=== PATIENT | female | born 1995 | race Caucasian/White ===

== ENCOUNTER 2017-03-24 13:14 | Emergency (ER) | payer BC, OTHER ==
[~2017-03-24] VITALS: Ht 177.8 cm; Wt 65.8 kg
[2017-03-24] MEDS ORDERED: KETOROLAC 30 MG/ML VIAL IVP STA (13:39)
[2017-03-24] MEDS ORDERED: NS IV 1000 ML 1,000 ML IV ONE (13:39)
[2017-03-24 13:45] LABS: BASOPHILS % (AUTO) 1 % (0-10); EOSINOPHILS # (AUTO) 0.2 10^3/uL (0.0-0.3); EOSINOPHILS % (AUTO) 2 % (0-10); HEMATOCRIT 38 % (35-52); HEMOGLOBIN 13.3 G/DL (11.5-16.0); LYMPHOCYTES % (AUTO) 26 % (12-44); MEAN CORPUSCULAR HEMOGLOBIN 30 PG (25-34); MEAN CORPUSCULAR HGB CONC 35 G/DL (32-36); MEAN CORPUSCULAR VOLUME 84 FL (80-99); MEAN PLATELET VOLUME 11.7 FL (7.4-10.4); MONOCYTES # (AUTO) 0.4 X 10^3 (0.0-1.0); MONOCYTES % (AUTO) 6 % (0-12); NEUTROPHILS # (AUTO) 5.1 X 10^3 (1.8-7.8); NEUTROPHILS % (AUTO) 67 % (42-75); PLATELET COUNT 225 10^3/uL (130-400); RED CELL DISTRIBUTION WIDTH 12.9 % (10.0-14.5); WHITE BLOOD COUNT 7.7 10^3/uL (4.3-11.0)
[2017-03-24 13:52] LABS: BILIRUBIN,URINE NEGATIVE (NEGATIVE); CLARITY,URINE CLEAR; COLOR,URINE YELLOW; GLUCOSE, URINE (UA) NEGATIVE (NEGATIVE); KETONES,URINE NEGATIVE (NEGATIVE); LEUKOCYTE ESTERASE ,URINE NEGATIVE (NEGATIVE); NITRITE,URINE NEGATIVE (NEGATIVE); PH,URINE 6 (5-9); PROTEIN,URINE NEGATIVE (NEGATIVE); UROBILINOGEN,URINE NORMAL (NORMAL)
[2017-03-24 13:59] LABS: ALANINE AMINOTRANSFERASE 14 U/L (0-55); ALBUMIN 4.2 GM/DL (3.2-4.5); ALKALINE PHOSPHATASE 58 U/L (40-136); BILIRUBIN,TOTAL 0.8 MG/DL (0.1-1.0); BUN/CREATININE RATIO 10; CALCIUM 9.4 MG/DL (8.5-10.1); CARBON DIOXIDE 18 MMOL/L (21-32); CHLORIDE 110 MMOL/L (98-107); CREATININE SERUM 0.79 MG/DL (0.60-1.30); GFR ESTIMATED > 60; GLUCOSE 96 MG/DL (70-105); POTASSIUM 3.6 MMOL/L (3.6-5.0); SODIUM 138 MMOL/L (135-145)
[2017-03-24 14:02] LABS: BACTERIA,URINE NEGATIVE /HPF
--- NOTE | 2017-03-24 14:02 | ED GU-Female ---
General Chief Complaint: -Female Stated Complaint: OVARIAN CYST BURST, STILL BLEEDING Nursing Triage Note: PT CO OF ABD PAIN LOWER ABD, ABNORMAL BLEEDING, STATES WENT TO [facility] AND THEY TOLD HER MAYBE OVARIAN CYST RUPTURE. PT STATES NOT SUPPOSE TO BE ON PERIOD AT THIS X Source: patient Exam Limitations: no limitations History of Present Illness Date Seen by Provider: Mar 24, 2017 Time Seen by Provider: 13:37 Initial Comments Here with lower abdominal pain and abnormal bleeding. She is on control and has not yet to the placebo pills. She started having abdominal bleeding for a couple days. Was seen at [facility] and had diagnosis of possible ovarian cyst rupture. Pain is worse today. Earlier this morning it was much worse but is 13 out of 10 currently. Pain seems to be suprapubic and low right side. Timing/Duration: getting worse, other (3-4 days) Severity/Quality: moderate, aching Location: suprapubic Radiation: RLQ Activities at Onset: none Sexual Friendship History: less than 2 months ago, single partner Associated Symptoms: abdominal pain, dysuria, No fever/chills, No lower back pain, No nausea/vomiting, No urinary frequency Allergies and Home Medications Allergies Coded Allergies: No Known Drug Allergies (Unverified , 03/24/17) Constitutional: see HPI EENTM: no symptoms reported Respiratory: no symptoms reported Cardiovascular: no symptoms reported Gastrointestinal: see HPI, abdominal pain, diarrhea, No nausea, No vomiting Genitourinary: denies dysuria, denies pain : No LMP: Feb 21, 2017 Musculoskeletal: no symptoms reported Skin: no symptoms reported All Other Systemes Reviewed Negative Unless Noted: Yes Past Hirhlga-Oeents-Nldmku Hx Patient Social History Alcohol Use: Denies Use Recreational Drug Use: No Smoking Status: Never a Smoker Recent Foreign Travel: No Contact w/Someone Who Travel: No Recent Infectious Disease Expo: No Recent Hopitalizations: No Ebola Symptoms: Denies Symptoms Listed Physical Abuse: No Sexual Abuse: No Surgeries History of Surgeries: No Respiratory History of Respiratory Disorde: No Cardiovascular History of Cardiac Disorders: No Neurological History of Neurological Disord: No Genitourinary History of Genitourinary Disor: No Gastrointestinal History of Gastrointestinal Di: No Psychosocial Suicide Risk Score: 0 Reviewed Nursing Assessment Reviewed/Agree w Nursing PMH: Yes Family Medical History Significant Family History: No Pertinent Family Hx Physical Exam Vital Signs Vital Signs - First Documented 03/24/17 13:30 Temp 98.1 Pulse 78 Resp 18 B/P (MAP) 142/82 Capillary Refill : General Appearance: WD/WN, no apparent distress HEENT: PERRL/EOMI, pharynx normal Neck: full range of motion, supple Cardiovascular: regular rate, rhythm, no murmur Respiratory: lungs clear, normal breath sounds Gastrointestinal: soft, tenderness (suprapubic and to a lesser extent the right lower quadrant.) Back: normal inspection, no CVA tenderness, no vertebral tenderness Extremities: non-tender, normal inspection Neurologic/Psychiatric: alert, oriented x 3 Skin: normal color, warm/dry Progress/Results/Core Measures Suspected Sepsis SIRS Temperature:98.1 Pulse: Respiratory Rate: Laboratory Tests 03/24/17 13:30: White Blood Count 7.7 Blood Pressure / Mean: Laboratory Tests 03/24/17 13:30: Creatinine 0.79, Platelet Count 225, Total Bilirubin 0.8 Results/Orders Lab Results Laboratory Tests Test 03/24/17 13:30 03/24/17 13:44 Range/Units White Blood Count 7.7 4.3-11.0 10^3/uL Red Blood Count 4.50 4.35-5.85 10^6/uL Hemoglobin 13.3 11.5-16.0 G/DL Hematocrit 38 35-52 % Mean Corpuscular Volume 84 80-99 FL Mean Corpuscular Hemoglobin 30 25-34 PG Mean Corpuscular Hemoglobin Concent 35 32-36 G/DL Red Cell Distribution Width 12.9 10.0-14.5 % Platelet Count 225 130-400 10^3/uL Mean Platelet Volume 11.7 H 7.4-10.4 FL Neutrophils (%) (Auto) 67 42-75 % Lymphocytes (%) (Auto) 26 12-44 % Monocytes (%) (Auto) 6 0-12 % Eosinophils (%) (Auto) 2 0-10 % Basophils (%) (Auto) 1 0-10 % Neutrophils # (Auto) 5.1 1.8-7.8 X 10^3 Lymphocytes # (Auto) 2.0 1.0-4.0 X 10^3 Monocytes # (Auto) 0.4 0.0-1.0 X 10^3 Eosinophils # (Auto) 0.2 0.0-0.3 10^3/uL Basophils # (Auto) 0.0 0.0-0.1 10^3/uL Sodium Level 138 135-145 MMOL/L Potassium Level 3.6 3.6-5.0 MMOL/L Chloride Level 110 H 98-107 MMOL/L Carbon Dioxide Level 18 L 21-32 MMOL/L Anion Gap 10 5-14 MMOL/L Blood Urea Nitrogen 8 7-18 MG/DL Creatinine 0.79 0.60-1.30 MG/DL Estimat Glomerular Filtration Rate > 60 BUN/Creatinine Ratio 10 Glucose Level 96 70-105 MG/DL Calcium Level 9.4 8.5-10.1 MG/DL Total Bilirubin 0.8 0.1-1.0 MG/DL Aspartate Amino Transf (AST/SGOT) 16 5-34 U/L Alanine Aminotransferase (ALT/SGPT) 14 0-55 U/L Alkaline Phosphatase 58 40-136 U/L C-Reactive Protein High Sensitivity 0.02 0.00-0.50 MG/DL Total Protein 7.0 6.4-8.2 GM/DL Albumin 4.2 3.2-4.5 GM/DL Urine Color YELLOW Urine Clarity CLEAR Urine pH 6 5-9 Urine Specific [place] 1.020 1.016-1.022 Urine Protein NEGATIVE NEGATIVE Urine Glucose (UA) NEGATIVE NEGATIVE Urine Ketones NEGATIVE NEGATIVE Urine Nitrite NEGATIVE NEGATIVE Urine Bilirubin NEGATIVE NEGATIVE Urine Urobilinogen NORMAL NORMAL MG/DL Urine Leukocyte Esterase NEGATIVE NEGATIVE Urine RBC (Auto) 2+ H NEGATIVE Urine RBC 5-10 H /HPF Urine WBC NONE /HPF Urine Squamous Epithelial Cells 5-10 /HPF Urine Crystals NONE /LPF Urine Bacteria NEGATIVE /HPF Urine Casts NONE /LPF Urine Mucus NEGATIVE /LPF Urine Culture Indicated NO My Orders Orders - NISREEN DON MD Cbc With Automated Diff (03/24/17 13:39) Comprehensive Metabolic Panel (03/24/17 13:39) Hs C Reactive Protein (03/24/17 13:39) Ua Culture If Indicated (03/24/17 13:39) Saline Lock/Iv-Start (03/24/17 13:39) Ns Iv 1000 Ml (Sodium Chloride 0.9%) (03/24/17 13:39) Urine Bedside (03/24/17 13:39) Ketorolac Injection (Toradol Injection) (03/24/17 13:39) Ct Abd/Pelv W (Appendicitis) (03/24/17 14:51) Iohexol Injection (Omnipaque 350 Mg/Ml 1 (03/24/17 15:00) Ns (Ivpb) (Sodium Chloride 0.9% Ivpb Bag (03/24/17 15:00) Medications Given in ED Current Medications Medications Dose Ordered Sig/Italia Route Start Time Stop Time Status Last Admin Dose Admin Iohexol 100 ml ONCE ONCE IV 03/24/17 15:00 03/24/17 15:01 DC 03/24/17 15:04 100 ML Sodium Chloride 100 ml ONCE ONCE IV 03/24/17 15:00 03/24/17 15:01 DC 03/24/17 15:04 100 ML Sodium Chloride 1,000 ml @ 0 mls/hr Q0M ONCE IV 03/24/17 13:39 03/24/17 13:42 DC 03/24/17 13:51 1,000 MLS/HR Vital Signs/I&O Vital Sign - Last 12Hours 03/24/17 13:30 Temp 98.1 Pulse 78 Resp 18 B/P (MAP) 142/82 Capillary Refill : Point of Care Testing Urine -Bedside: Negative Progress Note : Progress Note Seen and evaluated. IV, labs and UA ordered. ordered. Normal saline 1 L bolus and Toradol 30 mg IV ordered. Monitor patient. CT abdomen and pelvis ordered due to length of time of symptoms and to right lower quadrant pain. Still seems to be more suprapubic. Pain is currently resolved. Monitor patient. 1610: No acute findings. I did discuss results of CT scan including the question of the left kidney for detox. No indication of urinary tract infection and white count is not elevated currently. I will send a copy of the chart to [facility]. Could consider pelvic ultrasound if not improving as well as pelvic exam if she continues to have symptoms or if discharge presents. This was discussed with the patient who verbalize understanding. Discharged home with return precautions. Patient verbalize understanding instructions and agreement with plan. Diagnostic Imaging Diagonstic Imaging: CT Plain Films/CT/US/NM/MRI: abdomen, pelvis Comments VIA [facility], [facility]. [place], [place] NAME: LENORE VALDES MED REC#: [id number] PT STATUS: REG ER : 1995 PHYSICIAN: NISREEN DON MD ADMIT DATE: 03/24/17/ER Draft Date of Exam:03/24/17 CT ABD/PELV W (APPENDICITIS) PROCEDURE: CT abdomen and pelvis with contrast, rule out appendicitis. TECHNIQUE: Multiple contiguous axial images were obtained through the abdomen and pelvis after the administration of intravenous contrast. INDICATION: Right lower quadrant pain. COMPARISON: None available. FINDINGS: The visualized lung bases are clear. Periportal edema. Otherwise, the liver is unremarkable. Spleen is unremarkable. Adrenal glands are unremarkable. The pancreas is unremarkable. Heterogeneous enhancement of the left kidney. No significant perinephric fat stranding. No hydronephrosis. No aneurysmal dilatation of the abdominal aorta. Prominence of the inferior vena cava. The urinary bladder is unremarkable. Uterus and adnexal structures are unremarkable for age. The appendix is unremarkable. No bowel obstruction or pneumatosis. No significant adenopathy or free air. Trace free fluid within the lower pelvis. Transitional lumbosacral vertebral body. No acute osseous abnormality. IMPRESSION: 1. No evidence of acute appendicitis. 2. Heterogeneous enhancement of the left kidney. This could relate to underlying pyelonephritis, Recommend correlation with urinary analysis. 3. Periportal edema. This is nonspecific, though can simply be seen with volume overload. Recommend clinical correlation. 4. Trace free fluid within the lower pelvis, likely physiologic. 5. Additional findings as above. Dictated on workstation # [id number] Dict: 03/24/17 1532 Trans: 03/24/17 1551 [facility] [id number] Interpreted by: JOSE EDUARDO MD Electronically signed by: Departure Impression Impression: Primary Impression: Suprapubic abdominal pain Disposition: HOME, SELF-CARE Condition: Improved Departure-Patient Inst. Decision time for Depature: 16:14 Referrals: NO,LOCAL PHYSICIAN (PCP/Family) Primary Care Physician Patient Instructions: Acute Abdomen (Belly Pain), Adult (DC), Acute Pelvic Pain (DC) Add. Discharge Instructions: All discharge instructions reviewed with patient and/or family. Voiced understanding. Continue previous medications as prescribed. Follow-up with [facility] on Sunday or Sunday for recheck and further evaluation. Return for worse pain , fever, vomiting, weakness, difficulty with going to the bathroom or other concerns as needed. Copy Copies To 1: RODERICK CEDENO MD, TIMOTHY D MD Mar 24, 2017 14:02
[2017-03-24] MEDS ORDERED: NS 100 ML (IVPB) BAG IV ONE (15:00)
[2017-03-24] MEDS ORDERED: IOHEXOL 350 MG/ML 100 ML (OMNIPAQUE 350) VIAL IV ONE (15:00)
--- NOTE | 2017-03-24 15:52 | Diagnostic Imaging Report ---
PROCEDURE: CT abdomen and pelvis with contrast, rule out appendicitis. TECHNIQUE: Multiple contiguous axial images were obtained through the abdomen and pelvis after the administration of intravenous contrast. INDICATION: Right lower quadrant pain. COMPARISON: None available. FINDINGS: The visualized lung bases are clear. Periportal edema. Otherwise, the liver is unremarkable. Spleen is unremarkable. Adrenal glands are unremarkable. The pancreas is unremarkable. Heterogeneous enhancement of the left kidney. No significant perinephric fat stranding. No hydronephrosis. No aneurysmal dilatation of the abdominal aorta. Prominence of the inferior vena cava. The urinary bladder is unremarkable. Uterus and adnexal structures are unremarkable for age. The appendix is unremarkable. No bowel obstruction or pneumatosis. No significant adenopathy or free air. Trace free fluid within the lower pelvis. Transitional lumbosacral vertebral body. No acute osseous abnormality. IMPRESSION: 1. No evidence of acute appendicitis. 2. Heterogeneous enhancement of the left kidney. This could relate to underlying pyelonephritis, Recommend correlation with urinary analysis. 3. Periportal edema. This is nonspecific, though can simply be seen with volume overload. Recommend clinical correlation. 4. Trace free fluid within the lower pelvis, likely physiologic. 5. Additional findings as above. Dictated by: Dictated on workstation # [id number]
== END 2017-03-24 16:31 | disposition home or self-care (01) ==
LOC: ER 13:18
DX: R10.31 Right lower quadrant pain (principal)
CPT/HCPCS: 36415; 74177; 80053; 81000; 84703; 85025; 86141